=== PATIENT | female | born 1965 | race Caucasian/White ===

== ENCOUNTER → 2019-09-02 | Day surgery (SDC) | payer BC ==
[~2019-09-02] MED LIST: Lactated Ringers 1,000 ML IV SCH; Lidocaine 1% 4 ML ONE; Lidocaine 1%/Sod Bicarbonate in NS 8.4% 1 ML Syringe IDERM PRN; Midazolam 1 MG/ML 2 ML SDV ONE; Ondansetron 4 MG/2 ML SDV ONE; Propofol 200 MG/20 ML SDV ONE; Sodium Chloride 0.9% 10 ML Syringe FLUSH PRN; ceFAZolin 1 GM Vial ONE; fentaNYL 100 MCG/2 ML SDV ONE
--- NOTE | 2019-09-02 07:09 | PCM.PREANE ---
Preanesthetic Assessment - Procedure Proposed Procedure: FB removal right thumb - Anesthesia/Transfusion/Family Hx Anesthesia History: Prior Anesthesia Without Reaction Family History of Anesthesia Reaction: No Transfusion History: No Prior Transfusion(s) - Review of Systems General: No Symptoms Pulmonary: No Symptoms Cardiovascular: No Symptoms Gastrointestinal: No Symptoms Neurological: No Symptoms Other: Reports: Thyroid Problems (hyperthyroidism) - Physical Assessment NPO Status Date: 09/01/19 NPO Status Time: 22:00 Vital Signs: Last Vital Signs Temp 36.1 C 09/02/19 06:20 Pulse 57 L 09/02/19 06:20 Resp 16 09/02/19 06:20 BP 120/67 09/02/19 06:20 Pulse Ox 99 09/02/19 06:20 Height: 1.75 m Weight: 58.967 kg ASA Class: 2 Mental Status: Alert & Oriented x3 Airway Class: Mallampati = 1 Dentition: Reports: Normal Dentition Thyro-Mental Finger Breadths: 3 Mouth Opening Finger Breadths: 3 ROM/Head Extension: Full Lungs: Clear to Auscultation, Normal Respiratory Effort Cardiovascular: Regular Rate, Regular Rhythm - Lab Values: Laboratory Last Values COVID-19 PCR Not detected (NOT DETECT) 08/30/19 11:00 - Allergies Allergies/Adverse Reactions: Allergies Allergy/AdvReac Type Severity Reaction Status Date / Time erythromycin base Allergy Nausea and Verified 09/02/19 06:42 Vomiting Sulfa (Sulfonamide Allergy Cannot Verified 09/02/19 06:42 Antibiotics) Remember - Blood Blood Available: No Product(s) Available: None - Anesthesia Plan Pre-Op Medication Ordered: None - Acknowledgements Anesthesia Type Planned: MAC Pt an Appropriate Candidate for the Planned Anesthesia: Yes Alternatives and Risks of Anesthesia Discussed w Pt/Guardian: Yes Pt/Guardian Understands and Agrees with Anesthesia Plan: Yes PreAnesthesia Questionnaire - Past Health History Medical/Surgical History: Denies Medical/Surgical History HEENT History: Reports: Allergic Rhinitis, Impaired Vision, Other (See Below) Other HEENT History: tympanic membrane perforation Cardiovascular History: Reports: None Respiratory History: Reports: None Gastrointestinal History: Reports: None Genitourinary History: Reports: None DYE RANGE FEEDER History: Reports: Other (See Below) Other OB/BYN History: vaginal atrophy, vaginal discharge Musculoskeletal History: Reports: Other (See Below) Other Musculoskeletal History: low back pain, left thumb injury, left knee arthroscopy, left shoulder arthroscopy Neurological History: Reports: None Psychiatric History: Reports: Anxiety Endocrine/Metabolic History: Reports: Hyperthyroidism, Other (See Below) Other Endocrine/Metabolic History: thyroid nodules Hematologic History: Reports: None Immunologic History: Reports: None Oncologic (Cancer) History: Reports: None Dermatologic History: Reports: None - Past Surgical History Head Surgeries/Procedures: Reports: None HEENT Surgical History: Reports: None Cardiovascular Surgical History: Reports: None Respiratory Surgical History: Reports: None GI Surgical History: Reports: Colonoscopy Female Surgical History: Reports: None Male Surgical History: Reports: None Endocrine Surgical History: Reports: None Neurological Surgical History: Reports: None Musculoskeletal Surgical History: Reports: None Oncologic Surgical History: Reports: None Dermatological Surgical History: Reports: None - SUBSTANCE USE Smoking Status *Q: Never Smoker Tobacco Use Within Last Twelve Months: No Second Hand Smoke Exposure: No Days Per Week of Alcohol Use: 4 Number of Drinks Per Day: 2 Total Drinks Per Week: 8 Recreational Drug Use History: No - HOME MEDS Home Medications: Home Meds ALPRAZolam [Alprazolam] 0.5 mg PO DAILY PRN 09/01/19 [History] Cyclobenzaprine [Flexeril] 10 mg PO TID PRN 09/01/19 [History] Glucosamine/D3/Boswellia Blossom [Osteo Bi-Flex Caplet] 1 tab PO DAILY 09/01/19 [History] estradioL [Estradiol] 1 dose VAG ASDIRECTED PRN 09/01/19 [History] - CURRENT (IN HOUSE) MEDS Current Meds: Current Medications Lactated Ringer's (Ringers, Lactated) 1,000 mls @ 125 mls/hr IV ASDIRECTED RUPAL Stop: 09/02/19 23:00 Last Admin: 09/02/19 06:49 Dose: 125 mls/hr Documented by: Lidocaine/Sodium Bicarbonate (Buffered Lidocaine 1% In Ns 8.4%) 0.25 ml IDERM ONETIME PRN PRN Reason: Prior to IV Start Stop: 09/02/19 18:00 Last Admin: 09/02/19 06:49 Dose: 0.25 ml Documented by: Sodium Chloride (Saline Flush) 10 ml FLUSH ASDIRECTED PRN PRN Reason: Keep Vein Open Stop: 07/02/20 18:00 Discontinued Medications Bupivacaine HCl (Sensorcaine-Mpf 0.25%) Confirm Administered Dose 10 ml .ROUTE .STK-MED ONE Stop: 09/02/19 06:31 Cefazolin Sodium (Ancef) Confirm Administered Dose 2 gm .ROUTE .STK-MED ONE Stop: 09/02/19 06:53 Fentanyl (Sublimaze) Confirm Administered Dose 100 mcg .ROUTE .STK-MED ONE Stop: 09/02/19 06:53 Lidocaine HCl (Xylocaine-Mpf 1%) Confirm Administered Dose 4 mls @ as directed .ROUTE .STK-MED ONE Stop: 09/02/19 06:53 Lidocaine HCl (Xylocaine-Mpf 1%) Confirm Administered Dose 30 ml .ROUTE .STK-MED ONE Stop: 09/02/19 06:31 Midazolam HCl (Versed 1 Mg/Ml) Confirm Administered Dose 2 mg .ROUTE .STK-MED ONE Stop: 09/02/19 06:53 Ondansetron HCl (Zofran) Confirm Administered Dose 4 mg .ROUTE .STK-MED ONE Stop: 09/02/19 06:52 Propofol (Diprivan 20 Ml) Confirm Administered Dose 200 mg .ROUTE .STK-MED ONE Stop: 09/02/19 06:52
[2019-09-02] MEDS: Bupivacaine 0.25% 10 ML SDV ONE ×2 (07:23→07:47)
[2019-09-02] MEDS: Lidocaine 1% 30 ML SDV ONE ×2 (07:25→07:47)
--- NOTE | 2019-09-02 08:16 | PCM48HPAN ---
Post Anesthesia Note - EVALUATION WITHIN 48HRS OF ANESTHETIC Vital Signs in Normal Range: Yes Patient Participated in Evaluation: Yes Respiratory Function Stable: Yes Airway Patent: Yes Cardiovascular Function Stable: Yes Hydration Status Stable: Yes Pain Control Satisfactory: Yes Nausea and Vomiting Control Satisfactory: Yes Mental Status Recovered: Yes Vital Signs: Last Vital Signs Temp 36.1 C 09/02/19 06:20 Pulse 57 L 09/02/19 06:20 Resp 16 09/02/19 06:20 BP 120/67 09/02/19 06:20 Pulse Ox 99 09/02/19 06:20 - COMMENTS/OBSERVATIONS Free Text/Narrative:: no anesthesia complications noted
--- NOTE | 2019-09-02 08:18 | PCM.OPNOTE ---
- General Post-Op/Procedure Note Date of Surgery/Procedure: 09/02/19 Operative Procedure(s): left thumb irrigation and debridement with removal of foreign body Pre Op Diagnosis: left thumb abscess with foreign body Post-Op Diagnosis: Same Anesthesia Technique: Local, MAC Primary Surgeon: Ajay Walker Anesthesia Provider: Prasanna Villafuerte Corporate Controller: Leeanna Alaniz EBL in mLs: 5 Complications: None Condition: Good
[2019-09-02 09:08] VITALS: BP 118/55; PULSE 52
--- NOTE | 2019-09-10 10:26 | OR ---
DATE OF OPERATION: 09/02/2019 SURGEON: Ajay Walker MD OPERATION PERFORMED: Left thumb irrigation and debridement with removal of foreign body. PREOPERATIVE DIAGNOSIS: Left thumb abscess with foreign body. POSTOPERATIVE DIAGNOSIS: Left thumb abscess with foreign body. ANESTHESIA: Local MAC. ANESTHESIA PROVIDER: Marco Velarde. HUMAN PERFORMANCE CONSULTANT: Leeanna Alaniz PA-C. ESTIMATED BLOOD LOSS: 5 mL. COMPLICATIONS: None. CONDITION: Stable. DESCRIPTION OF PROCEDURE: The patient was identified in the preoperative holding area. Proper site was marked and identified by surgeon. The patient was taken back to the operative theater, where after adequate anesthesia, the patient's left upper extremity was sterilely prepped and draped in the usual sterile fashion. OR time-out was performed. The patient received 2 g IV Ancef. At this time, an Esmarch was used as a tourniquet around the thumb. Incision was made over the area of the abscess over the radial side of the IP joint of the thumb. This was taken to the subcutaneous tissue. The patient was noted to have a large amount of metal fragments noted in the subcutaneous tissue as well as a small amount of purulent material. At this time, debridement of the subcutaneous tissue roughly 2 square centimeters was then done as well as irrigating liter of saline through it and trying to remove all metal pieces at this time. Once it was adequately debrided and the foreign bodies were removed, 4-0 nylon suture was used for closure of the skin. The patient was placed in a sterile soft dressing and sent to PACU in stable condition. MMODAL /[id number]
== END | disposition home or self-care (01) ==
LOC: JD.SDS 06:19
PROVIDERS: ATTEND Orthopaedic Surgery
DX: L02.512 Cutaneous abscess of left hand (principal); S60.352A Superficial foreign body of left thumb, initial encounter; F41.9 Anxiety disorder, unspecified; N95.1 Menopausal and female climacteric states; E05.90 Thyrotoxicosis, unspecified without thyrotoxic crisis or storm; Z88.1 Allergy status to other antibiotic agents; Z88.2 Allergy status to sulfonamides; Z11.59 Encounter for screening for other viral diseases; W45.8XXA Other foreign body or object entering through skin, initial encounter
CPT/HCPCS: 11042; 87635; J0690; J2001; J2250; J2405; J2704; J3010; J3490; J7120; 00400; U0002